=== PATIENT | male | born 1960 | race Two or more races ===

== ENCOUNTER 2024-05-28 09:56 | Outpatient (AMB) | payer MEDICAID, SELFPAY ==
--- NOTE | 2024-05-28 10:08 | GSCOFFNT_ITS ---
Vital Signs - [facility] 05/28/24 10:09 Height 1.73 m Height Method Stated Weight 93.582 kg Weight Measurement Method Standing Scale BMI 31.4 BP 133/77 H Blood Pressure Source Automatic Cuff Blood Pressure Location Right Upper Arm Position Sitting Respiration 18 Pulse 77 Pulse Source Monitor Temp 97.8 F Temp Source Temporal Artery Scan Pulse Oximetry (%) 97 Oxygen Delivery Method Room Air Med/Allergies Allergies & Medications Allergies No Known Allergies Allergy (Verified 05/28/24 10:09) Medication Reconciliation ibuprofen 800 mg tablet 800 mg PO Q8H 05/28/24 [History Confirmed 05/28/24] MA Intake Visit Data Collection New Patient or Established: New Patient (never been to [facility]) Reason for Visit:: PANCREAS MASS Pain Present Currently: No Weatherization And Housing Inspector Required: No PCP or OBGYN visit in last 3 months: Yes Hx Now: No Do You Feel Safe at Home: Yes Authorities Contacted: N/A Smoking Status Smoking Status: Current some day smoker Cessation Counseling Provided: GALINDO was advised that quitting smoking is the single most important factor to protect the health of themselves and their family. Discussed the benefits of quitting smoking with patient. Encouraged patient to quit smoking and provided Cessation assistance materials and resources. Tobacco Use: Cigarette Years smoked: 30 Are you interested in quitting?: No Would you like additional Smoking Cessation Counseling?: No Immunization / Flu Flu Vaccine in the Last 12 Months: No Flu Vaccine Exclusion Criteria: No Exclusion Criteria Past Medical History Past Medical History CARDIAC: Positive Hypertension Family History FAMILY HISTORY: Positive Family Cardiac Disorders (Father passed from a cardiac conditon) and Family Gastrointestinal Problems (Mother passed from kidney disease); Negative Family Cancer Surgical History OTHER SURGICAL HX: Other surgical history: None Social History SOCIAL: Currently smoking 5 cigarettes a day. Denies alcohol use, quit a month ago. Previously would get black-out drunk on the weekends. Previous cocaine use and last used 3 months ago. 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 SMOKING STATUS: Smoking status: Current some day smoker HPI HPI Narrative 64 year old male with pmhx of HTN presents with a pancreatic tail mass after CT scan was done to assess his lungs. Patient states that he had a URI, which prompted his physician to get a CT scan of his chest, which showed the mass at his pancreatic tail. Patient states that the only symptoms he had been experiencing was RUQ pain after eating spicy food or acidic foods. He described this pain as short-lived and would resolve upon avoidance of these foods in his diet. He has experienced this pain intermittently for the past 5 years. He said the pain is achy, but doesn't feel the need to take anything for it and it goes away quickly. He does take ibuprofen daily for his back pain from a herniated disc. He states that he recently cleaned up his diet and lost 16 lbs intentionally. He denies fevers, nausea, vomiting, changes to bowel habits. He states that he has been fatigued, but ascribed it to his lack of sleep. He also states that he gets headaches and a pressure sensation in his eye, but has received eye drops from his pathology laboratory technologist, which is helping. ROS Review of Systems Systems Reviewed: All systems reviewed, normal except as documented Constitutional Constitutional: Reports fatigue, Denies fever(s), Reports headache(s) (goes along with his eye pain that is being treated by an opthamologist. ), Denies night sweats and Reports weight loss (intentional ) Eyes Eyes: Denies loss of vision, Reports eye pain (being treated by opthalmologist ) and Denies other (icteric slcera) ENT Ears, Nose, Mouth, and Throat: Reports headache(s) (goes along with his eye pain that is being treated by an opthamologist. ) Cardiovascular Cardiovascular: Reports lightheadedness (intermittently ) Neurologic Neurologic: Reports headache(s) (goes along with his eye pain that is being treated by an opthamologist. 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 The mass shows solid components and is worrisome for cancer. I explained that I do not have the expertise to perform pancreatic surgery but that he will likely need resection although the specialist may first recommend biopsy. Plan: Refer patient to hepatobiliary surgery Dr Wolff at [facility] I provided pt the contact information and encouraged him to reach out [facility], and follow up with his PMD if there is any issue with the referral Orders: Referrals General surgery S36.232A - Laceration of tail of pancreas, unspecified degree, initial encounter Office Procedures GNS Level of Care Nursing/Assessment Patient Status: Initial/New Patient Nursing Assessment/Reassesment: Medication Reconciliation, Update PMH in EMR and Vital Signs Coordination of Care: Complex Care and Chronic Disease 1-5, Consent,records obtained, informed consent, Education Simp Pt/Fam, Results/Orders obtained and Staff clarify orders New Patient Charge New Patient Point Assignment: [id number] New Patient Point Charge: ADMINISTRATIVE JUDGE Level 3 ([id number]) Patient Portal Questionaires Social History Tobacco History Smoking Status: Current some day smoker Domestic Abuse History Do You Feel Safe at Home: Yes Review of Systems Report any current symptoms Only answer those that you have currently: General Complaints fatigue: Yes fever(s): No headache(s): Yes (goes along with his eye pain that is being treated by an opthamologist. ) night sweats: No weight loss: Yes (intentional ) Eyes loss of vision: No eye pain: Yes (being treated by opthalmologist ) other: No (icteric slcera) Heart & Circulation lightheadedness: Yes (intermittently ) Past Medical History Past Medical History Have you ever been diagnosed with any of the following: Cardiology Problems Hypertension: Yes
[2024-05-28 10:09] VITALS: BP 133/77; PULSE 77; RESP 18; TEMP 36.6; O2SAT 97; BMI 31.4
== END 2024-05-28 10:19 | disposition home or self-care (01) ==
LOC: HODSRG 09:56
PROVIDERS: PCP Physician Assistant; Referring Provider Physician Assistant; Supervising Provider Surgery; Visit Provider Surgery
DX: K86.9 Disease of pancreas, unspecified (principal)
CPT/HCPCS: 99203; G0463